=== PATIENT | female | born 1995 | race African-American/Black ===

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

== ENCOUNTER 2018-08-06 23:33 | Emergency (ER) | payer MEDICAID ==
[~2018-08-06] VITALS: Ht 170.2 cm; Wt 75.7 kg
[~2018-08-06 23:33] MED LIST: COLACE100 MG ORAL; PREPARATION H26 GM TP
[2018-08-06 23:38] VITALS: BP 123/80
[2018-08-06 23:40] VITALS: BP 123/80
--- NOTE | 2018-08-06 23:55 | Emergency Room Report ---
History of Present Illness General Chief Complaint: Laceration Source: Patient Present Illness HPI Patient presents with complaints and requesting evaluation of a leg laceration The initial injury occurred earlier this month Patient was jumping over a fence when she sustained the injury was seen at [facility] Patient has been following at a clinic Had Steri-Strips applied today and presents for further evaluation She reports that the area of the laceration appears smaller than it did initially however does not appear to be fully healing Denies any discharge denies any fevers patient was initially on antibiotics Allergies: Coded Allergies: No Known Allergies (Unverified , 10/28/16) Patient History Past Medical History: see triage record Pertinent Family History: none Last Menstrual Period: 08/03/2018 Now: No : 0 Para: 0 Reviewed Nursing Documentation: PMH: Agreed; PSxH: Agreed Nursing Documentation-PMH Past Medical History: No Stated History Review of Systems All Other Systems: negative except mentioned in HPI Physical Exam Vital Signs Date Time Temp Pulse Resp B/P (MAP) Pulse Ox O2 Delivery O2 Flow Rate FiO2 08/06/18 23:38 98.4 74 16 123/80 100 Room Air Sp02 EP Interpretation: reviewed, normal General Appearance: well appearing, no apparent distress Head: normocephalic, atraumatic Eyes: bilateral eye PERRL, bilateral eye EOMI ENT: hearing grossly normal, normal pharynx Neck: supple Musculoskeletal: other - Secondary healing laceration left calf area otherwise ambulatory no focal deficit is appreciated Neurologic: alert, oriented x3, responsive Skin: other - Approximately 4 cm laceration, healing secondarily, initial scab formation around the edge of the wound, there are Steri-Strips across the area as well, no obvious fluctuance no obvious discharge Lymphatic: no adenopathy Medical Decision Making Diagnostic Impression: Primary Impression: Laceration Additional Impression: secondary healing ER Course Patient presents with a fairly chronic wound Area appears to be healing I do not appreciate any obvious infectious pathology Patient is recommended to follow up closely with her continued outpatient care Also provided with plastic referral Last Vital Signs Date Time Temp Pulse Resp B/P (MAP) Pulse Ox O2 Delivery O2 Flow Rate FiO2 08/06/18 23:38 98.4 74 16 123/80 100 Room Air Status: unchanged Disposition: HOME, SELF-CARE Condition: Stable Referrals: ELIEZER STARK M.D. Patient Instructions: Nonsutured Laceration Care Additional Instructions: Please continue your current outpatient follow-up. A specialty consultation has also been provided for you Erika Silveira DO Aug 06, 2018 23:55
== END 2018-08-07 | disposition home or self-care (01) ==
LOC: EMR 23:50
DX: S81.812A Laceration without foreign body, left lower leg, initial encounter (principal); Y93.39 Activity, other involving climbing, rappelling and jumping off; Y92.9 Unspecified place or not applicable
CPT/HCPCS: 99282

== ENCOUNTER 2018-10-04 13:47 | Emergency (ER) | payer MEDICAID ==
[~2018-10-04] VITALS: Ht 167.6 cm; Wt 77.1 kg
[2018-10-04 13:50] VITALS: BP 124/75
[2018-10-04] MEDS ORDERED: ACETAMINOPHEN500 M3 ORAL (14:07)
[2018-10-04] MEDS ORDERED: IBUPROFEN600 MG ORAL (14:07)
--- NOTE | 2018-10-04 14:10 | Emergency Room Report ---
History of Present Illness General Chief Complaint: Pain Source: Patient Present Illness HPI Patient is a 23-year-old female presented after increased left-sided jaw pain. Patient reports having recent injury in which she was struck to the jaw by an elbow. She reports having subsequent difficulty with chewing hard food and intermittent pain lasting only several minutes after chewing. Patient denies any difficulty swallowing or difficulty opening her mouth. Allergies: Coded Allergies: No Known Allergies (Unverified , 10/28/16) Patient History Past Medical History: see triage record Last Menstrual Period: 09/28/2018 Reviewed Nursing Documentation: PMH: Agreed; PSxH: Agreed Nursing Documentation-PMH Past Medical History: No Stated History Review of Systems All Other Systems: negative except mentioned in HPI Physical Exam Vital Signs Date Time Temp Pulse Resp B/P (MAP) Pulse Ox O2 Delivery O2 Flow Rate FiO2 10/04/18 13:50 98.4 84 16 124/75 99 Room Air General Appearance: well appearing, no apparent distress, alert, GCS 15, non- toxic Head: normocephalic, atraumatic ENT: hearing grossly normal, normal voice, uvula midline, moist mucus membranes , other - Able to break a tongue blade with both Neck: full range of motion, supple Respiratory: no respiratory distress, speaking full sentences Cardiovascular #1: normal inspection Gastrointestinal: normal inspection Musculoskeletal: normal inspection, back normal, no calf tenderness Neurologic: normal inspection, alert, oriented x3, responsive, normal gait Psychiatric: mood/affect normal Skin: no rash Medical Decision Making Diagnostic Impression: Primary Impression: TMJ arthralgia ER Course Presented for jaw pain. Differential diagnosis include was not limited to fracture, dislocation, temporomandibular joint injury among others. Patient has a benign exam and does not appear to require any further imaging or laboratory testing at this time. Patient appears to have a recent temporomandibular joint injury. Patient was advised to soft mechanical diet. Patient was advised to follow-up with her dentist. She is given prescription for anti-inflammatory medication. Last Vital Signs Date Time Temp Pulse Resp B/P (MAP) Pulse Ox O2 Delivery O2 Flow Rate FiO2 10/04/18 13:50 98.4 16 124/75 99 Room Air 10/04/18 13:50 84 Status: improved Disposition: HOME, SELF-CARE Condition: Stable Scripts Ibuprofen* (MOTRIN*) 600 Mg Tablet 600 MG ORAL Q8H PRN for For Pain, #30 TAB 0 Refills Prov: Sebastian Zuñiga MD 10/04/18 Acetaminophen* (ACETAMINOPHEN EXTRA STRENGTH*) 500 Mg Tablet 500 MG ORAL Q8H PRN for Fever/Headache/Mild Pain, #30 TAB Prov: Sebastian Zuñiga MD 10/04/18 Patient Instructions: Temporomandibular Joint Syndrome Additional Instructions: Follow up with your dentist for recheck. Sebastian Zuñiga MD Oct 04, 2018 14:10
[2018-10-04 14:14] VITALS: BP 124/75
== END 2018-10-04 14:16 | disposition home or self-care (01) ==
LOC: EMR 14:10
DX: M26.622 Arthralgia of left temporomandibular joint (principal)
CPT/HCPCS: 99283

== ENCOUNTER 2019-06-16 14:48 | Emergency (ER) | payer MEDICAID ==
[~2019-06-16] VITALS: Ht 167.6 cm; Wt 80.7 kg
[~2019-06-16 14:48] MED LIST changes: +ACETAMINOPHEN500 M3 ORAL; +IBUPROFEN600 MG ORAL
[2019-06-16] MEDS ORDERED: NKM (14:59)
--- NOTE | 2019-06-16 15:17 | Emergency Room Report ---
History of Present Illness General Chief Complaint: Multiple Trauma/Fall Source: Patient Present Illness HPI 23 YO Female presents to the ED c/o Head trauma last night when she hit the right side of her head on the concrete ground. pt. has had N/V since. Denies Loss of consciousness. She denies but states she recently had unprotected intercourse and would like to be tested and given Plan B if possible. Pt. denies taking blood thinning medications. She reports that she was drinking ETOH last night but estimates a mild amount. Denies midline neck or back pain. She has not taken any medication for her symptoms. She reports some photophobia. Denies slurred speech, unilateral weaknesses or paresthesias. Allergies: Coded Allergies: No Known Allergies (Unverified , 10/28/16) Patient History Past Medical History: see triage record Past Surgical History: none Pertinent Family History: none Last Menstrual Period: 06/13/2019 Immunizations: UTD Reviewed Nursing Documentation: PMH: Agreed; PSxH: Agreed Nursing Documentation-PMH Past Medical History: No Stated History Review of Systems All Other Systems: negative except mentioned in HPI Physical Exam Vital Signs Date Time Temp Pulse Resp B/P (MAP) Pulse Ox O2 Delivery O2 Flow Rate FiO2 06/16/19 14:55 98.2 75 17 119/76 (90) 95 Room Air Sp02 EP Interpretation: reviewed, normal General Appearance: no apparent distress, alert, GCS 15, non-toxic Head: normocephalic, other - TTP to the right yarsanism small hematoma. Eyes: bilateral eye normal inspection, bilateral eye PERRL ENT: hearing grossly normal, normal voice, TMs + canals normal, other - no hemotympanum or evidence of CSF leak Neck: full range of motion Respiratory: lungs clear, normal breath sounds, speaking full sentences Cardiovascular #1: regular rate, rhythm Gastrointestinal: normal bowel sounds, non tender, soft Musculoskeletal: back normal, gait/station normal, normal range of motion, non- tender Neurologic: alert, oriented x3, responsive, motor strength/tone normal, sensory intact, normal gait, speech normal, no pronator, other - answering questions appropriately with sufficient details and no delay in response time. , grossly normal Psychiatric: judgement/insight normal Skin: other - small hematoma to the right yarsanism. Medical Decision Making PA Attestation Dr. Urrutia is my supervising Physician whom patient management has been discussed with. Diagnostic Impression: Primary Impression: Head injury Qualified Codes: S09.90XA - Unspecified injury of head, initial encounter ER Course 23 YO Female presents to the ED c/o Head trauma last night when she hit the right side of her head on the concrete ground. pt. has had N/V since. Denies Loss of consciousness. She denies but states she recently had unprotected intercourse and would like to be tested and given Plan B if possible. Pt. denies taking blood thinning medications. She reports that she was drinking ETOH last night but estimates a mild amount. Denies midline neck or back pain. She has not taken any medication for her symptoms. She reports some photophobia. Denies slurred speech, unilateral weaknesses or paresthesias. Ddx considered but are not limited to Fracture, dislocation, contusion, concussion Sprain/Strain/Spasm, hematoma Vital signs: are WNL, pt. is afebrile H&PE are most consistent with contusion, no evidence of focal neurological deficit, no loss of consciousness. ORDERS: -Urine Hcg: Negative - CT Head NO Contrast: WNL ED INTERVENTIONS: -D/W pt. concussion precautions. DISCHARGE: At this time pt. is stable for d/c to home. Will provide printed patient care instructions, and any necessary prescriptions. Care plan and follow up instructions have been discussed with the patient prior to discharge. Labs Test 06/16/19 15:15 Urine HCG, Qualitative Negative (NEGATIVE) CT/MRI/US Diagnostic Results CT/MRI/US Diagnostic Results : Imaging Test Ordered: CT head no contrast Impression " No evidence of acute fracture, hemorrhage, or intracranial process" per official radiology report- Please see report for specific details. Last Vital Signs Date Time Temp Pulse Resp B/P (MAP) Pulse Ox O2 Delivery O2 Flow Rate FiO2 06/16/19 14:55 98.2 75 17 119/76 (90) 95 Room Air Status: improved Disposition: HOME, SELF-CARE Condition: Stable Scripts Levonorgestrel (PLAN B ONE-STEP) 1.5 Mg Tablet 1.5 MG PO ONCE, #1 TAB Prov: Linda Fallon 06/16/19 Aspirin/Acetaminophen/Caffeine (EXCEDRIN MIGRAINE GELTAB) 1 Each Tablet 1 EACH PO Q6HR, #20 TAB Prov: Linda Fallon 9/4/19 Ondansetron Odt* (ZOFRAN ODT*) 4 Mg Tab.rapdis 4 MG BC EVERY 6 HOURS PRN for Nausea & Vomiting, #10 TAB 0 Refills Prov: Linda Fallon 06/16/19 Patient Instructions: Head Injury, Adult Additional Instructions: Take medications as directed. Follow up with a Primary Care Provider in 3-5 days, even if your symptoms have resolved. --Please review list of primary care clinics, if you do not already have a primary care provider Return sooner to ED if new symptoms occur, or current symptoms become worse. - Please note that this Emergency Department Report was dictated using [employer] purchasing technology software, occasionally this can lead to erroneous entry secondary to interpretation by the dictation equipment. Linda Fallon Jun 16, 2019 15:17
[2019-06-16 15:21] VITALS: BP 119/76
--- NOTE | 2019-06-16 15:22 | NUR ---
ED Nurse Note: ambulated into ED due to GLF 2100 last night due to loss of balance. denies any syncopy or dizziness prior to the fall. pt reports hitting head against the concrete but neg LOC and any head injuries.
--- NOTE | 2019-06-16 15:51 | Diagnostic Imaging Report ---
Indications: Head trauma last night, nausea, vomiting, pain Technique: Spiral acquisitions obtained through the brain. Angled axial and coronal 5 x 5 mm slices were reconstructed. Total dose length product 1319.78 mGycm. CTDI vol(s) 70.38 mGy. Dose reduction achieved using automated exposure control Comparison: None. Findings: No acute intracranial hemorrhage or edema, mass effect, nor midline shift. Normal cook-white differentiation. Normal size ventricles and extra axial CSF spaces. Visualized orbits and sinuses are unremarkable. The calvarium is intact. Impression: Negative The CT scanner at [facility] is accredited by the [employer] and the scans are performed using protocols designed to limit radiation exposure to as low as reasonably achievable to attain images of sufficient resolution adequate for diagnostic evaluation.
[2019-06-16] MEDS ORDERED: EXCEDRIN MIGRA1 EACH PO (16:27)
[2019-06-16] MEDS ORDERED: ONDANSETRON ODT4 MG BC (16:27)
[2019-06-16] MEDS ORDERED: Excedrin Migraine tab ORAL ONE (16:30)
[2019-06-16 16:32] VITALS: BP 119/76
--- NOTE | 2019-06-16 16:33 | NUR ---
ER DISCHARGE NOTE: Patient is cleared to be discharged per ERMD, pt is aox4, on room air, with stable vital signs. pt was given dc and prescription instructions, pt was able to verbalize understanding, pt id band and iv site removed without complications. pt is able to ambulate with steady gait. pt took all belongings.
[2019-06-16] MEDS ORDERED: PLAN B ONE-STE1.5 MG PO (16:35)
== END 2019-06-16 16:41 | disposition home or self-care (01) ==
LOC: EMR 15:33
DX: S09.90XA Unspecified injury of head, initial encounter (principal); Z30.012 Encounter for prescription of emergency contraception; W22.8XXA Striking against or struck by other objects, initial encounter; Y92.9 Unspecified place or not applicable
CPT/HCPCS: 70450; 81025; 99284

== ENCOUNTER 2019-12-24 12:56 | Emergency (ER) | payer MEDICAID ==
[~2019-12-24] VITALS: Ht 167.6 cm; Wt 84.8 kg
[~2019-12-24 12:56] MED LIST changes: +DICYCLOMINE HCL10 MG ORAL; +EXCEDRIN MIGRA1 EACH PO; +FAMOTIDINE20 MG ORAL; +LIDOCAINE VISC100 ML ORAL; +MULTIVITAMINS1 EAC8 ORAL; +NKM; +ONDANSETRON ODT4 MG BC; +PLAN B ONE-STE1.5 MG PO
[2019-12-24 13:02] VITALS: BP 118/76
--- NOTE | 2019-12-24 13:23 | NUR ---
ED Nurse Note: Pt walked into ED w/ need to get prescription of plan B medication. Pt states she had unprotected sex last night and needs medication. Pt is alert and orientedx4, ambulatory. Pt has no vaginal discharge, swelling, nausea.
--- NOTE | 2019-12-24 13:40 | Emergency Room Report ---
History of Present Illness General Chief Complaint: Medication Refill Source: Patient Present Illness HPI 24-year-old female with no past medical history here requesting Plan B. Patient reports that this is the fourth time in the past year and a half that she has been taking Plan B. Patient does not trust control and uses Plan B all the time when condom breaks. Reports the last time she was sexually active yesterday and condom broke. Last menstrual period was 27 November. Denies any vaginal bleeding spotting. Has not taken medication for symptom relief. Denies any fever and chills no recent travel. COVID-19 risk:Travel to affect: No Has patient experienced garcia: No Allergies: Coded Allergies: No Known Allergies (Unverified , 10/28/16) Patient History Past Medical History: see triage record Past Surgical History: none Pertinent Family History: none Last Menstrual Period: 12/09/19 Now: No Immunizations: UTD Reviewed Nursing Documentation: PMH: Agreed; PSxH: Agreed Nursing Documentation-PMH Past Medical History: No Stated History Review of Systems All Other Systems: negative except mentioned in HPI Physical Exam Vital Signs Date Time Temp Pulse Resp B/P (MAP) Pulse Ox O2 Delivery O2 Flow Rate FiO2 12/24/19 13:02 98.6 80 16 118/76 (90) 99 Room Air Sp02 EP Interpretation: reviewed, normal General Appearance: no apparent distress, alert, GCS 15, non-toxic Head: normocephalic, atraumatic Eyes: bilateral eye normal inspection, bilateral eye PERRL ENT: hearing grossly normal, normal pharynx, no angioedema, normal voice Neck: full range of motion, supple/symm/no masses Respiratory: chest non-tender, lungs clear, normal breath sounds, no rhonchi, speaking full sentences Cardiovascular #1: regular rate, rhythm, no edema, no murmur, normal capillary refill Gastrointestinal: non tender, soft Rectal: deferred Genitourinary: no CVA tenderness Musculoskeletal: back normal, digits/nails normal Neurologic: cutter finisher III-XII nml as tested, EOM palsy, oriented Psychiatric: normal inspection, judgement/insight normal Skin: no rash Lymphatic: normal inspection, no adenopathy Medical Decision Making PA Attestation All my diagnosis and treatment plans were reviewed ad discussed with my supervising physician Dr. Silveira Diagnostic Impression: Primary Impression: Encounter for medication refill Additional Impression: Emergency contraception ER Course 24-year-old female with no past medical history here requesting Plan B. Patient reports that this is the fourth time in the past year and a half that she has been taking Plan B. Patient does not trust control and uses Plan B all the time when condom breaks. Reports the last time she was sexually active yesterday and condom broke. Last menstrual period was 27 November. Denies any vaginal bleeding spotting. Has not taken medication for symptom relief. Denies any fever and chills no recent travel. Ddx considered but are not limited to: Emergency contraception, control methods, incidental finding of Vital signs: are WNL, pt. is afebrile H&PE are most consistent with: Encounter for medication refill for emergency contraception ORDERS: Urine , Plan B ED INTERVENTIONS: None required at this time. DISCHARGE: At this time pt. is stable for d/c to home. Will provide printed patient care instructions, and any necessary prescriptions. Care plan and follow up instructions have been discussed with the patient prior to discharge. Gave patient a list of them in clinic to go to and get control as taking Plan B multiple x1 year is not a good method and has the same risk factors as needed control methods. Also will increase the risk of infertility. If worsening symptoms at emergency room Last Vital Signs Date Time Temp Pulse Resp B/P (MAP) Pulse Ox O2 Delivery O2 Flow Rate FiO2 12/24/19 13:02 98.6 16 118/76 99 Room Air 12/24/19 13:02 80 Disposition: HOME, SELF-CARE Condition: Stable Scripts Levonorgestrel (PLAN B ONE-STEP) 1.5 Mg Tablet 1.5 MG PO ONCE for 1 Day, #1 TAB Prov: Luann Lilly 12/24/19 Referrals: [facility] (PCP) Patient Instructions: Medicine Refill at the Emergency Department Additional Instructions: Take medication as directed, follow-up primary care provider, is [place] to start control on daily basis. If worsening symptoms return to emergency room Luann Lilly Dec 24, 2019 13:39
[2019-12-24] MEDS ORDERED: PLAN B ONE-STE1.5 MG PO (13:42)
[2019-12-24 13:49] VITALS: BP 116/79
--- NOTE | 2019-12-24 13:49 | NUR ---
ER DISCHARGE NOTE: Patient is cleared to be discharged per ERMD, pt is aox4, on room air, with stable vital signs. pt was given dc and prescription instructions, pt was able to verbalize understanding, pt id band remoevd. pt is able to ambulate with steady gait. pt took all belongings. Pt educated about plan B.
== END 2019-12-24 13:50 | disposition home or self-care (01) ==
LOC: EMR 13:20
DX: Z76.0 Encounter for issue of repeat prescription (principal); Z30.012 Encounter for prescription of emergency contraception
CPT/HCPCS: 81025; Z7502; 99283

== ENCOUNTER 2020-08-08 22:26 | Emergency (ER) | payer MEDICAID ==
[~2020-08-08] VITALS: Ht 167.6 cm; Wt 95.3 kg
--- NOTE | 2020-08-08 22:40 | NUR ---
ED Nurse Note: Recieved pt from home, here with c/o wanting to know if she is , denies any other s/s or complaints, pt urine sample collected and sent to lab.
[2020-08-08 22:56] LABS: APPEARANCE,URINE SLIGHTLY CLOUDY; BILIRUBIN, URINE NEGATIVE (NEGATIVE); GLUCOSE, URINE (UA) NEGATIVE (NEGATIVE); KETONES,URINE 1+ (NEGATIVE); LEUKOCYTE ESTERASE ,URINE 1+ (NEGATIVE); NITRITE,URINE NEGATIVE (NEGATIVE); PH,URINE 6 (4.5-8.0); PROTEIN,URINE NEGATIVE (NEGATIVE); UROBILINOGEN,URINE NORMAL MG/DL (0.0-1.0)
[2020-08-08 23:03] LABS: COLOR,URINE YELLOW
[2020-08-08 23:10] VITALS: BP 130/83
--- NOTE | 2020-08-08 23:10 | NUR ---
ER DISCHARGE NOTE: Patient is cleared to be discharged per ERMD, pt is aox4, on room air, with stable vital signs. pt was given dc instructions, pt was able to verbalize understanding, pt id band removed without complications. pt is able to ambulate with steady gait. pt took all belongings.
--- NOTE | 2020-08-08 23:29 | Emergency Room Report ---
History of Present Illness General Chief Complaint: Complications Source: Patient Present Illness HPI Disclaimer: Please note that this report is being documented using DRAGON technology. This can lead to erroneous entry secondary to incorrect interpretation by the dictating instrument. HPI: 24-year-old female presents requesting test. She states she had a home test last week which returned positive but does not believe the results because it was a "cheap [id number] version." LMP was 06/14/2020. S he denies any abdominal pain, vaginal bleeding, vaginal discharge, dysuria, hematuria, fever, chills, other symptoms at this time. No other complaints from patient. 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 EOMI. Resp: Normal work of breathing Abdomen: Soft, nontender, nondistended. Skin: Intact. No abrasions, laceration or rash over the exposed skin MSK: Normal tone and bulk. Moving all extremities. No obvious deformity. Neuro: Awake and alert. Mentating appropriately Medical Decision Making Diagnostic Impression: Primary Impression: Negative test ER Course 24-year-old female presents requesting test after testing positive on [id number] urine test last week. Denies other symptoms at this time. test returned negative. No evidence of urinary tract infection. May be of been a spontaneous or false positive reading prior. She is otherwise stable and well-appearing. Does not require emergent labs or imaging at this time. Will refer to [facility]AG [facility]. Instructed to return with new or worsening symptoms. Last Vital Signs Date Time Temp Pulse Resp B/P (MAP) Pulse Ox O2 Delivery O2 Flow Rate FiO2 08/08/20 22:29 98.4 88 20 130/83 (99) 99 Room Air Disposition: HOME, SELF-CARE Condition: Stable Additional Instructions: Please follow-up with your primary care doctor in the next 1 to 3 days to discuss this emergency department visit and for reevaluation. Follow-up with [facility] regarding your prior previous result. If you have any new or worsening symptoms please return to the emergency department for reevaluation. Please note that this report is being documented using Bloomz technology. This can lead to erroneous entry secondary to incorrect interpretation by the dictating instrument. Bayron Urrutia MD Aug 08, 2020 23:29
== END 2020-08-08 23:10 | disposition home or self-care (01) ==
LOC: EMR 22:47
DX: Z00.00 Encounter for general adult medical examination without abnormal findings (principal)
CPT/HCPCS: 81003; 81025; Z7502; 99282

== ENCOUNTER 2020-08-30 04:24 | Emergency (ER) | payer MEDICAID ==
[~2020-08-30] VITALS: Ht 167.6 cm; Wt 93.0 kg
--- NOTE | 2020-08-30 04:42 | NUR ---
ED Nurse Note: Patient walked in from home c/o midepigastric abdominal pain 8/10, aching, states "it goes in circles in my stomach". Patient reports pain has been ongoing for 2 days. Patient aao x 4 and ambulatory with steady gait. Patient stable during assessment.
[2020-08-30 04:43] VITALS: BP 125/79
--- NOTE | 2020-08-30 04:43 | Emergency Room Report ---
History of Present Illness General Chief Complaint: Abdominal Pain Source: Patient Present Illness HPI Disclaimer: Please note that this report is being documented using DRAGON technology. This can lead to erroneous entry secondary to incorrect interpretation by the dictating instrument. HPI: 25-year-old female history of obesity presents for evaluation of abdominal pain. Patient reports epigastric cramping for the past 2 days. Reports loose nonbloody stools. Reports nausea but no vomiting. Able to eat liquids but avoiding solids. Denies fever, chills, cough, chest pain, shortness of breath, dysuria, hematuria. LMP August 08. Denies history of abdominal surgery. Denies other medical history. Has not taken anything prior to arrival. 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 EOMI. Cardiovascular: RRR. S1 and S2 normal. No murmur appreciated Resp: Normal work of breathing. No cough, wheezing or crackles appreciated Abdomen: Abdomen is soft, nondistended. Mild tenderness palpation in epigastric and periumbilical region. No peritoneal signs. No masses. Negative rebound. Negative Aggarwal's. Skin: Intact. No abrasions, laceration or rash over the exposed skin MSK: Normal tone and bulk. Moving all extremities. No obvious deformity. Neuro: Awake and alert. Mentating appropriately. Medical Decision Making Diagnostic Impression: Primary Impression: Gastroenteritis ER Course 25-year-old female presenting for evaluation of diarrhea and nausea. Differential includes was not limited to gastritis, gastroenteritis, pa ncreatitis, cholecystitis, appendicitis, UTI, pyelonephritis, , ectopic , viral syndrome, food poisoning among others. Labs show no white count, renal function, hepatic function within normal limits. Electrolytes and lipase within normal limits. No evidence of urinary tract infection. Suspect a viral syndrome. Patient is resting comfortably on her phone on reevaluation. No emesis or diarrhea in the ER. Will treat symptomatically with Zofran, Pepcid and loperamide. She is hydrating well and will slowly advance diet. Recommended probiotics. She is stable for outpatient follow-up. Instructed to return to the ER with new or worsening symptoms. She understands and agrees with this treatment plan. Laboratory Tests Test 08/30/20 04:54 White Blood Count 7.7 K/UL (4.8-10.8) Red Blood Count 4.60 M/UL (4.20-5.40) Hemoglobin 14.4 G/DL (12.0-16.0) Hematocrit 43.8 % (37.0-47.0) Mean Corpuscular Volume 95 FL (80-99) Mean Corpuscular Hemoglobin 31.3 PG (27.0-31.0) H Mean Corpuscular Hemoglobin Concent 32.9 G/DL (32.0-36.0) Red Cell Distribution Width 11.3 % (11.6-14.8) L Platelet Count 307 K/UL (150-450) Mean Platelet Volume 6.5 FL (6.5-10.1) Neutrophils (%) (Auto) 48.8 % (45.0-75.0) Lymphocytes (%) (Auto) 40.9 % (20.0-45.0) Monocytes (%) (Auto) 7.1 % (1.0-10.0) Eosinophils (%) (Auto) 0.9 % (0.0-3.0) Basophils (%) (Auto) 2.3 % (0.0-2.0) H Urine Color Pale yellow Urine Appearance Clear Urine pH 6.5 (4.5-8.0) Urine Specific [place] 1.015 (1.005-1.035) Urine Protein Negative (NEGATIVE) Urine Glucose (UA) Negative (NEGATIVE) Urine Ketones Negative (NEGATIVE) Urine Blood Negative (NEGATIVE) Urine Nitrite Negative (NEGATIVE) Urine Bilirubin Negative (NEGATIVE) Urine Urobilinogen Normal MG/DL (0.0-1.0) Urine Leukocyte Esterase Negative (NEGATIVE) Sodium Level 137 MMOL/L (136-145) Potassium Level 3.8 MMOL/L (3.5-5.1) Chloride Level 102 MMOL/L (98-107) Carbon Dioxide Level 28 MMOL/L (21-32) Blood Urea Nitrogen 13 mg/dL (7-18) Creatinine 1.0 MG/DL (0.55-1.30) Estimated Glomerular Filtration Rate > 60 mL/min (>60) Glucose Level 77 MG/DL (74-106) Calcium Level 8.9 MG/DL (8.5-10.1) Total Bilirubin 0.2 MG/DL (0.2-1.0) Aspartate Amino Transferase (AST) 16 U/L (15-37) Alanine Aminotransferase (ALT) 22 U/L (12-78) Alkaline Phosphatase 68 U/L (46-116) Total Protein 8.3 G/DL (6.4-8.2) H Albumin 4.1 G/DL (3.4-5.0) Globulin 4.2 g/dL Albumin/Globulin Ratio 1.0 (1.0-2.7) Lipase 108 U/L (73-393) Last Vital Signs Date Time Temp Pulse Resp B/P (MAP) Pulse Ox O2 Delivery O2 Flow Rate FiO2 08/30/20 04:26 98.1 99 21 131/86 (101) 98 Room Air Disposition: HOME, SELF-CARE Condition: Stable Scripts Loperamide Hcl (ULTRA A-D) 2 Mg Tablet 2 MG PO BID, #20 TAB Prov: Bayron Urrutia MD 08/30/20 Ondansetron Odt* (ZOFRAN ODT*) 4 Mg Tab.rapdis 4 MG BC EVERY 6 HOURS PRN for Nausea & Vomiting, #10 TAB 0 Refills Prov: Bayron Urrutia MD 08/30/20 Famotidine* (Pepcid 20mg tablet*) 20 Mg Tablet 20 MG ORAL DAILY for Gerd, #30 TAB 0 Refills Prov: Bayron Urrutia MD 08/30/20 Referrals: NON PHYSICIAN (PCP) Bayron Urrutia MD Aug 30, 2020 04:43
[2020-08-30 05:02] LABS: APPEARANCE,URINE CLEAR; BASOPHILS % (AUTO) 2.3 % (0.0-2.0); BILIRUBIN, URINE NEGATIVE (NEGATIVE); COLOR,URINE PALE YELLOW; EOSINOPHILS % (AUTO) 0.9 % (0.0-3.0); GLUCOSE, URINE (UA) NEGATIVE (NEGATIVE); HEMATOCRIT 43.8 % (37.0-47.0); HEMOGLOBIN 14.4 G/DL (12.0-16.0); KETONES,URINE NEGATIVE (NEGATIVE); LEUKOCYTE ESTERASE ,URINE NEGATIVE (NEGATIVE); LYMPHOCYTES % (AUTO) 40.9 % (20.0-45.0); MEAN CORPUSCULAR VOLUME 95 FL (80-99); MONOCYTES % (AUTO) 7.1 % (1.0-10.0); NEUTROPHILS % (AUTO) 48.8 % (45.0-75.0); NITRITE,URINE NEGATIVE (NEGATIVE); PH,URINE 6.5 (4.5-8.0); PLATELET COUNT 307 K/UL (150-450); PROTEIN,URINE NEGATIVE (NEGATIVE); RED CELL DISTRIBUTION WIDTH 11.3 % (11.6-14.8); UROBILINOGEN,URINE NORMAL MG/DL (0.0-1.0); WHITE BLOOD COUNT 7.7 K/UL (4.8-10.8)
[2020-08-30] MEDS ORDERED: FAMOTIDINE20 MG ORAL (05:11)
[2020-08-30] MEDS ORDERED: ONDANSETRON ODT4 MG BC (05:11)
[2020-08-30 05:19] LABS: ALANINE AMINOTRANSFERASE 22 U/L (12-78); ALBUMIN 4.1 G/DL (3.4-5.0); ALKALINE PHOSPHATASE 68 U/L (46-116); ASPARTATE AMINO TRANSFERASE 16 U/L (15-37); BILIRUBIN,TOTAL 0.2 MG/DL (0.2-1.0); BLOOD UREA NITROGEN 13 mg/dL (7-18); CALCIUM 8.9 MG/DL (8.5-10.1); CARBON DIOXIDE 28 MMOL/L (21-32); CHLORIDE 102 MMOL/L (98-107); POTASSIUM 3.8 MMOL/L (3.5-5.1); SODIUM 137 MMOL/L (136-145)
[2020-08-30] MEDS ORDERED: ULTRA A-D2 MG PO (05:30)
[2020-08-30 05:35] VITALS: BP 123/75
--- NOTE | 2020-08-30 05:35 | NUR ---
ER DISCHARGE NOTE: Patient is cleared to be discharged per ERMD, pt is aox4, on room air, with stable vital signs. pt was given dc and prescription instructions, pt was able to verbalize understanding, pt id band removed. pt is able to ambulate with steady gait. pt took all belongings. pt stable upon discharge.
== END 2020-08-30 05:35 | disposition home or self-care (01) ==
LOC: EMR 04:31
DX: K52.9 Noninfective gastroenteritis and colitis, unspecified (principal)
CPT/HCPCS: 36415; 80053; 81003; 83690; 85025; 96374; 96375; J2405; S0028; Z7502; 99284

== ENCOUNTER 2020-10-28 20:03 | Emergency (ER) | payer MEDICAID ==
[~2020-10-28] VITALS: Ht 167.6 cm; Wt 90.7 kg
[~2020-10-28 20:03] MED LIST changes: +ULTRA A-D2 MG PO
[2020-10-28 20:29] VITALS: BP 132/78
--- NOTE | 2020-10-28 20:30 | NUR ---
Nurse Note: Pt arrived c/o cough and shortness of breath for 2 weeks. Pt stated she self quaritened since 10/13/2020 d/t being exposed to covid. Pt stated she has chest pain when she coughs; cough is dry. Pt stated shortness of breath. Lung sounds clear, 100% RA on survey coordinator. Denies n/v/d.
--- NOTE | 2020-10-28 20:39 | NUR ---
Nurse Note: x-ray at pt side.
[2020-10-28] MEDS ORDERED: ZITHROMAX250 MG ORAL (21:03)
[2020-10-28] MEDS ORDERED: PROMETHAZINE-D118 ML ORAL (21:03)
[2020-10-28] MEDS ORDERED: ALBUTEROL SULF8.5 G1 INH (21:03)
--- NOTE | 2020-10-28 21:07 | Diagnostic Imaging Report ---
EXAM: XR Chest, 1 View CLINICAL HISTORY: COUGH TECHNIQUE: Frontal view of the chest. COMPARISON: No relevant prior studies available. FINDINGS: Lungs: No consolidation or mass. Pleural space: No acute findings Heart: No cardiomegaly. Bones/joints: No acute findings. IMPRESSION: No acute cardiopulmonary process.
[2020-10-28 21:08] VITALS: BP 132/78
--- NOTE | 2020-10-28 21:08 | NUR ---
ED Nurse Note: Pt cleared by health care Provider for discharge. DC instructions/prescription was given and explained to pt and verbalized understanding of teachings. Instructed to follow up with PCP within 3-7 days. All medical deviecs such as ID band removed. Pt is AAO x4, ambulatory and left with all personal belongings.
--- NOTE | 2020-10-29 14:32 | Emergency Room Report ---
History of Present Illness General Chief Complaint: Upper Respiratory Illness Source: Patient Present Illness HPI 25-year-old female presents for evaluation. States she has had a cough and congestion for nearly 2 weeks now. Productive with greenish phlegm. States that she tested positive for Covid on October 13. Denies shortness of breath. Denies chest pain. No other aggravating relieving factors. 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 COVID-19 Testing Source: [facility]k Patient History Past Medical History: none Past Surgical History: none Pertinent Family History: none Social History: Denies: smoking, alcohol use, drug use Now: No Immunizations: UTD Reviewed Nursing Documentation: PMH: Agreed; PSxH: Agreed Review of Systems All Other Systems: negative except mentioned in HPI Physical Exam Vital Signs Date Time Temp Pulse Resp B/P (MAP) Pulse Ox O2 Delivery O2 Flow Rate FiO2 10/28/20 20:07 98.1 94 18 132/78 (96) 97 Room Air Sp02 EP Interpretation: reviewed, normal General Appearance: no apparent distress, alert, GCS 15, non-toxic Head: normocephalic, atraumatic Eyes: bilateral eye normal inspection, bilateral eye PERRL ENT: hearing grossly normal, normal pharynx, no angioedema, normal voice Neck: full range of motion, supple/symm/no masses Respiratory: chest non-tender, lungs clear, normal breath sounds, speaking full sentences Cardiovascular #1: regular rate, rhythm, no edema Cardiovascular #2: 2+ carotid (R), 2+ carotid (L), 2+ radial (R), 2+ radial (L), 2+ dorsalis pedis (R), 2+ dorsalis pedis (L) Gastrointestinal: normal bowel sounds, non tender, soft, non-distended, no guarding, no rebound Rectal: deferred Genitourinary: normal inspection, no CVA tenderness Musculoskeletal: back normal, normal range of motion, gait/station normal, non- tender Neurologic: alert, motor strength/tone normal, oriented x3, sensory intact, responsive, speech normal Psychiatric: judgement/insight normal, memory normal, mood/affect normal, no suicidal/homicidal ideation Reflexes: 3+ bicep (R), 3+ bicep (L), 3+ tricep (R), 3+ tricep (L), 3+ knee ( R), 3+ knee (L) Lymphatic: no adenopathy Medical Decision Making Diagnostic Impression: Primary Impression: Atypical pneumonia ER Course Hospital Course 25-year-old female presents with cough x2 weeks. Covid positive on October 13 Differential diagnoses include: URI, pharyngitis, otitis media, asthma Clinical course Patient placed on stretcher. After initial history, physical exam reveals a female in no acute distress. Bilateral TM unremarkable. No pharyngeal erythema. No tonsillar exudates. No lymphadenopathy. lungs clear. abdomen soft. Chest x-ray shows no focal consolidation or patchy infiltrates. Vitals stable. No tachypnea or hypoxia. I discussed findings with patient. Given prolonged course of symptoms will prescribe antibiotics and inhaler. Safe for discharge with close outpatient follow-up. I will provide referrals Diagnosis - atypical pneumonia Stable and discharged home with Rx Zpack, promethazine, albuterol. Instructed to followup with PMD. Return to ED if symptoms recur or worsen Chest X-Ray Diagnostic Results Chest X-Ray Diagnostic Results : Chest X-Ray Ordered: Yes # of Views/Limited/Complete: 1 View Indication: Other EP Interpretation: Yes Interpretation: no consolidation, no effusion, no pneumothorax, no acute cardiopulmonary disease Impression: No acute disease Electronically Signed by: Electronically signed by Shaka Perry MD Last Vital Signs Date Time Temp Pulse Resp B/P (MAP) Pulse Ox O2 Delivery O2 Flow Rate FiO2 10/28/20 21:08 98.1 99 18 132/78 97 Room Air Status: improved Disposition: HOME, SELF-CARE Condition: Stable Scripts Albuterol Sulfate* (Albuterol Sulfate Hfa*) 8.5 Gm Hfa.aer.ad 2 PUFF INH Q4H, #1 INH Prov: Shaka Perry MD 10/28/20 D-Methorphan Hb/Prometh Hcl* (PROMETHAZINE-DM SYRUP*) 118 Ml Syrup 5 ML ORAL Q6H PRN for For Cough, #118 ML 0 Refills Prov: Shaka Perry MD 10/28/20 Azithromycin* (ZITHROMAX*) 250 Mg Tablet 250 MG ORAL DAILY, #6 TAB 0 Refills Take two tables once daily for 1 day, then one tablet once daily for 4 days. Prov: Shaka Perry MD 10/28/20 Patient Instructions: Upper Respiratory Infection, Adult Shaka Perry MD Oct 29, 2020 14:32
== END 2020-10-28 21:08 | disposition home or self-care (01) ==
LOC: EMR 20:26
DX: U07.1 COVID-19 (principal); J12.82 Pneumonia due to coronavirus disease 2019
CPT/HCPCS: 71045; Z7502; 99283

== ENCOUNTER 2020-12-07 15:44 | Emergency (ER) | payer MEDICAID ==
[~2020-12-07] VITALS: Ht 165.1 cm; Wt 95.3 kg
[~2020-12-07 15:44] MED LIST changes: +ALBUTEROL SULF8.5 G1 INH; +PROMETHAZINE-D118 ML ORAL; +ZITHROMAX250 MG ORAL
--- NOTE | 2020-12-07 17:00 | NUR ---
pt c/o bilateral neck pain, intermittent. pt also states bilateral hip pain, worse with extended periods of sitting. pt states she recently started working out, states she does not think it is related to that. pt denies trauma to neck, hips. pt denies cough/fever/sob/nausea/vomiting/diarrhea. pt A&Ox4, ambualtory, VSS. urine sent to lab. pt placed in room for provider to evaluate. pt denies pmh/psh.
[2020-12-07 17:08] LABS: APPEARANCE,URINE CLEAR; BILIRUBIN, URINE NEGATIVE (NEGATIVE); GLUCOSE, URINE (UA) NEGATIVE (NEGATIVE); KETONES,URINE NEGATIVE (NEGATIVE); LEUKOCYTE ESTERASE ,URINE NEGATIVE (NEGATIVE); NITRITE,URINE NEGATIVE (NEGATIVE); PH,URINE 7 (4.5-8.0); PROTEIN,URINE NEGATIVE (NEGATIVE); UROBILINOGEN,URINE NORMAL MG/DL (0.0-1.0)
[2020-12-07 17:11] LABS: COLOR,URINE YELLOW
--- NOTE | 2020-12-07 17:25 | Emergency Room Report ---
History of Present Illness General Chief Complaint: General Complaint Source: Patient Present Illness HPI 25-year-old female presents to the emergency department complaining of 7 out of 10 in severity right adnexal pain that lasts approximately 2 weeks at a time. Patient reports she is experienced pain on the left side as well. Patient reports pain is exacerbated if she sits for long periods of time. Patient also is reporting recent abnormal testosterone level from her PCP as well as issues with some alopecia. Patient is also reporting discomfort in her throat anteriorly. She reports this is intermittent and was well. She states she was treated for strep throat in October and her symptoms greatly improved. Patient reports that she will have discomfort when swallowing on occasion. She denies regurgitation of food, easily choking, changes in voice, wheezing or difficulty with swallowing. She denies fevers or chills. She denies suspicion of . She reports that she has abnormal periods. She denies dysuria, urinary frequency or urgency. She denies low back pain. She denies nausea or vomiting, constipation or diarrhea. She denies night sweats or significant changes in weight. She denies depression or fatigue. She denies anxiousness, shakiness, loss of appetite. She denies significant past medical history. She denies known familial thyroid disorders. She reports that her PCP has referred her to endocrinology. No other aggravating or relieving factors at this time. Allergies: Coded Allergies: No Known Allergies (Unverified , 12/07/20) COVID-19 Screening Contact w/high risk pt: No Experienced COVID-19 symptoms?: No COVID-19 Testing performed MANAGER OF PROJECT MANAGEMENT: No Patient History Past Medical History: see triage record Past Surgical History: none Pertinent Family History: none Last Menstrual Period: 11/08/20 Now: No Reviewed Nursing Documentation: PMH: Agreed; PSxH: Agreed Nursing Documentation-PMH Past Medical History: No Stated History Review of Systems All Other Systems: negative except mentioned in HPI Physical Exam Vital Signs Date Time Temp Pulse Resp B/P (MAP) Pulse Ox O2 Delivery O2 Flow Rate FiO2 12/07/20 16:15 98.2 85 18 133/86 (102) 98 Room Air 12/07/20 16:56 100 Sp02 EP Interpretation: reviewed, normal General Appearance: no apparent distress, alert, GCS 15, non-toxic Head: normocephalic, atraumatic Eyes: bilateral eye normal inspection, bilateral eye PERRL ENT: hearing grossly normal, normal voice, TMs + canals normal, uvula midline, moist mucus membranes, other - no tonsillar swelling or exudate Neck: full range of motion, other - Palpable non-tender Right paracervical LAD only on the right side. Respiratory: lungs clear, normal breath sounds, speaking full sentences Cardiovascular #1: regular rate, rhythm Gastrointestinal: normal bowel sounds, non tender, soft, non-distended, no guarding Rectal: deferred Genitourinary: normal inspection, no CVA tenderness Musculoskeletal: back normal, normal range of motion, gait/station normal, non- tender Neurologic: alert, motor strength/tone normal, oriented x3, sensory intact, responsive, speech normal Psychiatric: judgement/insight normal Skin: no rash, normal color Lymphatic: adenopathy - Palpable non-tender Right paracervical LAD only on the right side. Medical Decision Making PA Attestation Dr. Zuñiga is my supervising Physician whom patient management has been discussed with. Diagnostic Impression: Primary Impression: Adnexal pain Additional Impression: Throat discomfort ER Course 25-year-old female presents to the emergency department complaining of 7 out of 10 in severity right adnexal pain that lasts approximately 2 weeks at a time. Patient reports she is experienced pain on the left side as well. Patient reports pain is exacerbated if she sits for long periods of time. Patient also is reporting recent abnormal testosterone level from her PCP as well as issues with some alopecia. Patient is also reporting discomfort in her throat anteriorly. She reports this is intermittent and was well. She states she was treated for strep throat in October and her symptoms greatly improved. Patient reports that she will have discomfort when swallowing on occasion. She denies regurgitation of food, easily choking, changes in voice, wheezing or difficulty with swallowing. She denies fevers or chills. She denies suspicion of . She reports that she has abnormal periods. She denies dysuria, urinary frequency or urgency. She denies low back pain. She denies nausea or vomiting, constipation or diarrhea. She denies night sweats or significant changes in weight. She denies depression or fatigue. She denies anxiousness, shakiness, loss of appetite. She denies significant past medical history. She denies known familial thyroid disorders. She reports that her PCP has referred her to endocrinology. No other aggravating or relieving factors at this time. Ddx considered but are not limited to Diverticulitis, acute appendicitis, ovarian torsion, ectopic , PID tubo-ovarian abscess, ovarian cyst, PCOS, hormonal imbalance. Vital signs: are WNL, pt. is afebrile. H&PE are most consistent with possible ovarian cyst, however due to presentation will r/o torsion, ectopic, and stone. ORDERS: -UA: Unremarkable -URINE HCG: Negative -Pelvic US Complete: Essentially normal did mention some physiologic free fluid in the pelvis given HPI discussed with patient that this could have been a previous cyst that may have already ruptured. ED INTERVENTIONS: -None required at this time. I did discuss with patient that although she was diagnosed and treated for strep throat in October she reports that she never recalls having any exudates on her throat. Discussed with patient due to right palpable lymph node that she may have been infected with mono which is why she is having some prolonged symptoms. Discussed with patient that I do not identify anything critical/emergent that requires any emergency intervention at this time and encouraged her to follow-up with her primary care physician and cadmium plater. -I do not identify an emergent condition at this time. With current presentation, pt. is stable for close outpatient follow up and conservative treatment. D/w pt. to return promptly to ED with worsening or new symptoms.- Pt. verbalizes' understanding and agreement with proposed treatment plan. DISCHARGE: At this time pt. is stable for d/c to home. Will provide printed patient care instructions, and any necessary prescriptions. Care plan and follow up instructions have been discussed with the patient prior to discharge. Labs Test 12/07/20 16:30 Urine Color Yellow Urine Appearance Clear Urine pH 7 (4.5-8.0) Urine Specific [employer] 1.015 (1.005-1.035) Urine Protein Negative (NEGATIVE) Urine Glucose (UA) Negative (NEGATIVE) Urine Ketones Negative (NEGATIVE) Urine Blood Negative (NEGATIVE) Urine Nitrite Negative (NEGATIVE) Urine Bilirubin Negative (NEGATIVE) Urine Urobilinogen Normal MG/DL (0.0-1.0) Urine Leukocyte Esterase Negative (NEGATIVE) Urine HCG, Qualitative Negative (NEGATIVE) CT/MRI/US Diagnostic Results CT/MRI/US Diagnostic Results : Imaging Test Ordered: Pelvic US Complete: Impression " IMPRESSION: Normal pelvic ultrasound." --Per official radiology report- Please see report for specific details. Last Vital Signs Date Time Temp Pulse Resp B/P (MAP) Pulse Ox O2 Delivery O2 Flow Rate FiO2 12/07/20 16:56 18 Room Air 100 12/07/20 16:15 98.2 85 133/86 (102) 98 Disposition: HOME, SELF-CARE Condition: Stable Scripts Ibuprofen* (MOTRIN*) 600 Mg Tablet 600 MG ORAL THREE TIMES A DAY, #20 TAB Prov: Linda Fallon 12/07/20 Patient Instructions: Infectious Mononucleosis, Ovarian Cyst, [id number] Additional Instructions: Take medications as directed. Follow up with a Primary Care Provider in 3-5 days, even if your symptoms have resolved. NAIL CUTTER and or Endocrinology evaluation recommended Return sooner to ED if new symptoms occur, or current symptoms become worse. - Please note that this Emergency Department Report was dictated using Site9statement processor technology software, occasionally this can lead to erroneous entry secondary to interpretation by the dictation equipment. Linda Fallon Dec 07, 2020 17:25
--- NOTE | 2020-12-07 17:59 | Diagnostic Imaging Report ---
EXAM: US Pelvis Transabdominal and Transvaginal, Complete CLINICAL HISTORY: PAIN TECHNIQUE: Real-time complete transabdominal and transvaginal pelvic ultrasound with image documentation. Transvaginal imaging was used for better evaluation of the endometrium and adnexa. COMPARISON: No relevant prior studies available. FINDINGS: Uterus/cervix: Uterus measures 6.9 x 3.6 x 3.1 cm. Normal endometrial stripe thickness measures up to 6.5 mm. No myometrial mass. Right ovary: Measures 3.8 x 2.6 x 2.4 cm. No mass. Normal blood flow. Left ovary: Measures 2.6 x 2.5 x 1.8 cm. No mass. Normal blood flow. Free fluid: Small amount of free fluid, likely physiologic. IMPRESSION: Normal pelvic ultrasound.
[2020-12-07] MEDS ORDERED: IBUPROFEN600 M1 ORAL (18:21)
[2020-12-07 18:36] VITALS: BP 136/56
--- NOTE | 2020-12-07 18:37 | NUR ---
ED Nurse Note: Pt cleared by health care Provider for discharge. DC instructions/prescription was given and explained to pt and verbalized understanding of teachings. All medical deviecs such as ID band removed. Pt is AAO x4, ambulatory and left with all personal belongings.
== END 2020-12-07 18:38 | disposition home or self-care (01) ==
LOC: EMR 16:30
DX: R10.2 Pelvic and perineal pain (principal); R07.0 Pain in throat
CPT/HCPCS: 76830; 76856; 81003; 81025; Z7502; 99284

== ENCOUNTER 2021-01-03 06:03 | Emergency (ER) | payer MEDICAID ==
[~2021-01-03] VITALS: Ht 167.6 cm; Wt 95.3 kg
[~2021-01-03 06:03] MED LIST changes: +IBUPROFEN600 M1 ORAL
--- NOTE | 2021-01-03 06:12 | NUR ---
pt aox3 c/o rash to neck x2 days. denies new skin products, denies new laundry detergent. pt denies any sob. pt c/o vaginal pain. denies unprotected sex, denies pain on urination. v/s stable. pt in no distress
[2021-01-03 06:13] VITALS: BP 135/79
--- NOTE | 2021-01-03 06:51 | NUR ---
urine in lab
--- NOTE | 2021-01-03 06:51 | NUR ---
pelvic exam done by dr brown
[2021-01-03 06:54] LABS: APPEARANCE,URINE SLIGHTLY CLOUDY; BILIRUBIN, URINE NEGATIVE (NEGATIVE); COLOR,URINE PALE YELLOW; GLUCOSE, URINE (UA) NEGATIVE (NEGATIVE); KETONES,URINE NEGATIVE (NEGATIVE); LEUKOCYTE ESTERASE ,URINE 3+ (NEGATIVE); NITRITE,URINE NEGATIVE (NEGATIVE); PH,URINE 6.5 (4.5-8.0); PROTEIN,URINE 2+ (NEGATIVE); UROBILINOGEN,URINE NORMAL MG/DL (0.0-1.0)
[2021-01-03] MEDS ORDERED: Lisinopril 10mg tab ONE (07:32)
[2021-01-03] MEDS ORDERED: hydroCHLOROthiazide 25mg cap ONE (07:32)
[2021-01-03] MEDS ORDERED: CEPHALEXIN500 MG ORAL (07:36)
--- NOTE | 2021-01-03 07:41 | Emergency Room Report ---
History of Present Illness General Chief Complaint: Skin Rash/Abscess Source: Patient Present Illness HPI Patient presents emergency department today complaint pelvic pain. Patient states that she has vaginal discharge and pelvic pain last 3 to 4 days. She had sexual intercourse about 4 days ago and the condom broke at the time so she is uncertain if she actually caught some STD. She denies any dysuria urinary frequency. Denies any fever nausea vomiting diarrhea chills. In addition patient states that she has a small rash on her right side of her neck as well as her right leg which appear to be irritated and fairly itchy. No history of trauma or infection no other complaints are noted. Symptoms noted to be mild to moderate. No other modifying factors. No other associated signs and symptoms. No other complaints were noted. 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: No Patient History Past Medical History: none Past Surgical History: none Pertinent Family History: none Social History: Denies: smoking, alcohol use, drug use Last Menstrual Period: 12/20/20 Reviewed Nursing Documentation: PMH: Agreed; PSxH: Agreed Review of Systems All Other Systems: negative except mentioned in HPI Physical Exam Vital Signs Date Time Temp Pulse Resp B/P (MAP) Pulse Ox O2 Delivery O2 Flow Rate FiO2 01/03/21 06:05 98.6 100 18 135/79 (97) Room Air Sp02 EP Interpretation: reviewed, normal General Appearance: normal inspection, well appearing, no apparent distress, alert Head: atraumatic Eyes: bilateral eye normal inspection ENT: normal ENT inspection, hearing grossly normal, normal voice Neck: normal inspection, full range of motion, supple, no bony tend Respiratory: normal inspection, lungs clear, normal breath sounds, no respiratory distress, no retraction, no wheezing Cardiovascular #1: regular rate, rhythm, no edema Gastrointestinal: normal inspection, normal bowel sounds, non tender, soft, no guarding, no hernia Genitourinary: no CVA tenderness, other - Speculum exam. Slightly irritated vaginal canal with whitish discharge. Musculoskeletal: normal inspection, back normal, normal range of motion Neurologic: alert, responsive, speech normal, normal inspection Psychiatric: normal inspection, judgement/insight normal, mood/affect normal Skin: no rash Medical Decision Making Diagnostic Impression: Primary Impression: UTI (urinary tract infection) Additional Impression: Vaginitis ER Course Patient presents emergency department today complaint pelvic pain. Differential considerations include urinary tract infection, STD, vaginitis just name a few. Given patient's presentation and vaginal exam there is concern for possible vaginitis. Will treat patient for sexually transmitted disease. Patient's urine also show evidence of leukocytes test was negative. Will treat patient for UTI. Recommend close outpatient follow-up. Patient is advised to follow up with primary doctor in 2-3 days and return the emergency room for any worsening symptoms and as needed. Labs Test 01/03/21 06:50 Urine Color Pale yellow Urine Appearance Slightly cloudy Urine pH 6.5 (4.5-8.0) Urine Specific [place] 1.015 (1.005-1.035) Urine Protein 2+ (NEGATIVE) Urine Glucose (UA) Negative (NEGATIVE) Urine Ketones Negative (NEGATIVE) Urine Blood 3+ (NEGATIVE) Urine Nitrite Negative (NEGATIVE) Urine Bilirubin Negative (NEGATIVE) Urine Urobilinogen Normal MG/DL (0.0-1.0) Urine Leukocyte Esterase 3+ (NEGATIVE) Urine HCG, Qualitative Negative (NEGATIVE) Last Vital Signs Date Time Temp Pulse Resp B/P (MAP) Pulse Ox O2 Delivery O2 Flow Rate FiO2 01/03/21 06:13 98.6 18 135/79 Room Air 01/03/21 06:05 100 Status: improved Disposition: HOME, SELF-CARE Condition: Stable Scripts Cephalexin* (KEFLEX*) 500 Mg Capsule 500 MG ORAL EVERY 6 HOURS for 7 Days, CAP Prov: Brent Bates MD 01/03/21 Patient Instructions: Urinary Tract Infection, [id number], Vaginitis, [id number] Brent Bates MD Jan 03, 2021 07:40
[2021-01-03] MEDS ORDERED: Azithromycin 250mg tab ORAL ONE (07:45)
[2021-01-03] MEDS ORDERED: Lidocaine 1% MPF 10mg/ml 5ml INJ ONE (07:45)
[2021-01-03] MEDS ORDERED: metroNIDAZOLE 250mg tab ORAL SCH (07:45)
--- NOTE | 2021-01-03 07:51 | NUR ---
Discharge instructions given to patient. Rocephin 250mg IM given to right deltoid. Rx for Cephalexin given to be filled by pharmacy of choice.
== END 2021-01-03 07:50 | disposition home or self-care (01) ==
LOC: EMR 06:36
DX: N39.0 Urinary tract infection, site not specified (principal); N76.0 Acute vaginitis; R21 Rash and other nonspecific skin eruption
CPT/HCPCS: 81003; 81025; 87086; 96372; J0696; Q0144; Z7502; 99283